=== PATIENT | female | born 1945 | race Caucasian/White ===

== ENCOUNTER → 2017-07-18 | Outpatient (CLI) | payer MEDICARE ==
[2017-07-18 09:56] LABS: BASOPHILS % (AUTO) 0.9 % (0.0-5.0); EOSINOPHILS % (AUTO) 3.2 % (0.0-8.0); HEMATOCRIT 42.4 % (36-48); LYMPHOCYTES % (AUTO) 13.4 % (21.0-51.0); MEAN CORPUSCULAR HEMOGLOBIN 35.1 pg (27.0-33.0); MEAN CORPUSCULAR HGB CONC 34.6 g/dL (32.0-36.0); MEAN CORPUSCULAR VOLUME 101.5 fL (79-99); MONOCYTES % (AUTO) 9.3 % (3.0-13.0); NEUTROPHILS % (AUTO) 73.2 % (40.0-77.0); PLATELET COUNT (AUTO) 204 K/uL (130-400); RED BLOOD CELL COUNT(AUTO) 4.18 MIL/uL (4.00-5.50); RED CELL DISTRIBUTION WIDTH 12.9 % (11.0-15.5); WHITE BLOOD COUNT (AUTO) 4.9 K/uL (4.8-10.8)
[2017-07-18 10:09] LABS: ALBUMIN 3.8 g/dL (3.5-5.0); BILIRUBIN,TOTAL 0.5 mg/dL (0.2-1.0); CREATININE 0.6 mg/dL (0.5-1.5); CRP QUANTITATIVE 4.2 mg/L (0.00-9.0); POTASSIUM 3.7 mmol/L (3.5-5.1)
[2017-07-18 10:50] LABS: ERYTHROCYTE SEDIMENTATION RATE 45 MM/HR (0-15)
== END | disposition home or self-care (01) ==
LOC: LAB 09:02
PROVIDERS: ATTEND Internal Medicine
DX: M06.9 Rheumatoid arthritis, unspecified (principal)
CPT/HCPCS: 36415; 80053; 85025; 85651; 86140; 86255; 86431

== ENCOUNTER 2017-07-19 13:31 | Emergency (ER) | payer MEDICARE ==
[2017-07-19] MEDS ORDERED: ACETAMINOPHEN 325 MG TAB ONE (14:02)
[2017-07-19] MEDS ORDERED: ONDANSETRON ODT 4 MG TAB ONE (14:35)
[2017-07-19] MEDS ORDERED: MORPHINE SULFATE 4 MG/1ML SYG ONE (14:36)
== END 2017-07-19 17:20 | disposition home or self-care (01) ==
LOC: EDH 13:31
DX: S80.02XA Contusion of left knee, initial encounter (principal); S00.83XA Contusion of other part of head, initial encounter; M19.90 Unspecified osteoarthritis, unspecified site; Z88.1 Allergy status to other antibiotic agents; Z96.649 Presence of unspecified artificial hip joint; W18.39XA Other fall on same level, initial encounter; Y93.01 Activity, walking, marching and hiking; Y92.89 Other specified places as the place of occurrence of the external cause; Y99.8 Other external cause status
CPT/HCPCS: 70450; 73562; 96372; 99284; J2270

== ENCOUNTER → 2017-07-20 | Outpatient (CLI) | payer MEDICARE | END | disposition home or self-care (01) | LOC: OIH 09:32 | PROVIDERS: ATTEND Nurse Practitioner Adult Health | DX: M19.032 Primary osteoarthritis, left wrist (principal); M79.632 Pain in left forearm; W19.XXXA Unspecified fall, initial encounter; Y93.89 Activity, other specified; Y92.89 Other specified places as the place of occurrence of the external cause; Y99.8 Other external cause status | CPT/HCPCS: 73090; 73100 ==

== ENCOUNTER → 2017-12-23 | Outpatient (CLI) | payer MEDICARE | END | disposition home or self-care (01) | LOC: RAH 15:43 | PROVIDERS: ATTEND Nurse Practitioner Adult Health | DX: R07.81 Pleurodynia (principal) | CPT/HCPCS: 71100 ==

== ENCOUNTER → 2018-03-23 | Outpatient (CLI) | payer MEDICARE ==
[2018-03-23 10:42] LABS: BASOPHILS % (AUTO) 1.2 % (0.0-5.0); EOSINOPHILS % (AUTO) 1.2 % (0.0-8.0); HEMATOCRIT 42.2 % (36-48); LYMPHOCYTES % (AUTO) 5.7 % (21.0-51.0); MEAN CORPUSCULAR HEMOGLOBIN 35.4 pg (27.0-33.0); MEAN CORPUSCULAR HGB CONC 35.1 g/dL (32.0-36.0); MEAN CORPUSCULAR VOLUME 100.9 fL (79-99); MONOCYTES % (AUTO) 6.2 % (3.0-13.0); NEUTROPHILS % (AUTO) 85.7 % (40.0-77.0); PLATELET COUNT (AUTO) 229 K/uL (130-400); RED BLOOD CELL COUNT(AUTO) 4.18 MIL/uL (4.00-5.50); RED CELL DISTRIBUTION WIDTH 12.9 % (11.0-15.5); WHITE BLOOD COUNT (AUTO) 10.8 K/uL (4.8-10.8)
[2018-03-23 10:54] LABS: ALBUMIN 3.6 g/dL (3.5-5.0); BILIRUBIN,TOTAL 0.5 mg/dL (0.2-1.0); CREATININE 0.8 mg/dL (0.5-1.5); CRP QUANTITATIVE 4.1 mg/L (0.00-9.0); POTASSIUM 3.1 mmol/L (3.5-5.1); TOTAL PROTEIN, SERUM 7.6 g/dL (6.0-8.3)
[2018-03-23 11:53] LABS: ERYTHROCYTE SEDIMENTATION RATE 41 MM/HR (0-30)
== END | disposition home or self-care (01) ==
LOC: LAB 10:08
PROVIDERS: ATTEND Internal Medicine
DX: M25.50 Pain in unspecified joint (principal)
CPT/HCPCS: 36415; 80053; 85025; 85651; 86140

== ENCOUNTER → 2018-03-30 | Outpatient (CLI) | payer MEDICARE | END | disposition home or self-care (01) | LOC: RAH 13:06 | PROVIDERS: ATTEND Nurse Practitioner Adult Health | DX: M79.605 Pain in left leg (principal) | CPT/HCPCS: 76882 ==

== ENCOUNTER → 2018-05-05 | Outpatient (CLI) | payer MEDICARE | END | disposition home or self-care (01) | LOC: OIH 10:12 | PROVIDERS: ATTEND Nurse Practitioner Adult Health | DX: R06.02 Shortness of breath (principal); R05 Cough; R07.81 Pleurodynia; M47.815 Spondylosis without myelopathy or radiculopathy, thoracolumbar region; Z91.81 History of falling | CPT/HCPCS: 71046; 71100 ==

== ENCOUNTER → 2018-05-29 | Outpatient (CLI) | payer MEDICARE | END | disposition home or self-care (01) | LOC: OIH 10:25 | PROVIDERS: ATTEND Nurse Practitioner Adult Health | DX: M81.0 Age-related osteoporosis without current pathological fracture (principal); G95.29 Other cord compression; M85.88 Other specified disorders of bone density and structure, other site | CPT/HCPCS: 72070 ==

== ENCOUNTER → 2021-06-15 | Outpatient (CLI) | payer MEDICARE | END | disposition home or self-care (01) | LOC: SHCH 14:08 | PROVIDERS: ATTEND Internal Medicine Cardiovascular Disease | DX: I08.3 Combined rheumatic disorders of mitral, aortic and tricuspid valves (principal) | CPT/HCPCS: 93306 ==

== ENCOUNTER → 2021-09-02 | Outpatient (CLI) | payer MEDICARE | END | disposition home or self-care (01) | LOC: RAH 10:55 | PROVIDERS: ATTEND Nurse Practitioner Adult Health | DX: J90 Pleural effusion, not elsewhere classified (principal); R05.9 Cough, unspecified | CPT/HCPCS: 71046 ==

== ENCOUNTER → 2021-09-15 | Outpatient (CLI) | payer MEDICARE | END | disposition home or self-care (01) | LOC: RAH 08:55 | PROVIDERS: ATTEND Nurse Practitioner Adult Health | DX: J90 Pleural effusion, not elsewhere classified (principal); R05.9 Cough, unspecified; J84.89 Other specified interstitial pulmonary diseases | CPT/HCPCS: 71046 ==

== ENCOUNTER → 2021-11-19 | Outpatient (CLI) | payer MEDICARE | END | disposition home or self-care (01) | LOC: RAH 13:52 | PROVIDERS: ATTEND Physician Assistant | DX: M54.6 Pain in thoracic spine (principal); M54.2 Cervicalgia | CPT/HCPCS: 72052; 72074 ==

== ENCOUNTER → 2021-11-27 | Outpatient (CLI) | payer MEDICARE | END | disposition home or self-care (01) | LOC: RAH 12:33 | PROVIDERS: ATTEND Physical Medicine & Rehabilitation | DX: R26.89 Other abnormalities of gait and mobility (principal) | CPT/HCPCS: 70551 ==

== ENCOUNTER → 2022-02-09 | Outpatient (CLI) | payer MEDICARE ==
[~2022-02-09] MED LIST: IOHEXOL-350 50ML VIAL IV ONE
== END | disposition home or self-care (01) ==
LOC: RAH 08:29
PROVIDERS: ATTEND Nurse Practitioner Adult Health
DX: R91.8 Other nonspecific abnormal finding of lung field (principal); J44.9 Chronic obstructive pulmonary disease, unspecified; K44.9 Diaphragmatic hernia without obstruction or gangrene
CPT/HCPCS: 71260; Q9967

== ENCOUNTER → 2022-04-15 | Outpatient (CLI) | payer MEDICARE | END | disposition home or self-care (01) | LOC: RAH 10:24 | PROVIDERS: ATTEND Physical Medicine & Rehabilitation | DX: M19.011 Primary osteoarthritis, right shoulder (principal); M89.8X2 Other specified disorders of bone, upper arm; M25.511 Pain in right shoulder; Z91.81 History of falling; Z88.1 Allergy status to other antibiotic agents; Z88.8 Allergy status to other drugs, medicaments and biological substances | CPT/HCPCS: 73030; 73060 ==

== ENCOUNTER → 2022-05-18 | Outpatient (CLI) | payer MEDICARE ==
[2022-05-18 13:15] LABS: ALBUMIN 3.8 g/dL (3.5-5.0); CREATININE 0.7 mg/dL (0.5-1.5); POTASSIUM 4.6 mmol/L (3.5-5.1); TOTAL PROTEIN, SERUM 7.6 g/dL (6.0-8.3)
== END | disposition home or self-care (01) ==
LOC: LAB 08:28
PROVIDERS: ATTEND Internal Medicine Cardiovascular Disease
DX: I10 Essential (primary) hypertension (principal)
CPT/HCPCS: 36415; 80053

== ENCOUNTER → 2022-05-21 | Outpatient (CLI) | payer MEDICARE ==
[~2022-05-21] MED LIST changes: +IOHEXOL 350 MG/ML 100ML INFUS..BTL IV ONE; -IOHEXOL-350 50ML VIAL IV ONE
== END | disposition home or self-care (01) ==
LOC: RAH 13:07
PROVIDERS: ATTEND Internal Medicine Cardiovascular Disease
DX: I48.0 Paroxysmal atrial fibrillation (principal)
CPT/HCPCS: 71270; Q9967

== ENCOUNTER 2022-09-27 11:33 | Emergency (ER) | payer MEDICARE ==
[~2022-09-27] VITALS: Ht 162.6 cm; Wt 83.5 kg
[2022-09-27 11:38] VITALS: BP 133/44
== END 2022-09-27 12:55 | disposition home or self-care (01) ==
LOC: EDH 11:33
DX: S09.90XA Unspecified injury of head, initial encounter (principal); I48.91 Unspecified atrial fibrillation; Z90.710 Acquired absence of both cervix and uterus; Z90.49 Acquired absence of other specified parts of digestive tract; Z88.1 Allergy status to other antibiotic agents; Z85.3 Personal history of malignant neoplasm of breast; Z79.01 Long term (current) use of anticoagulants; W18.39XA Other fall on same level, initial encounter; Y93.01 Activity, walking, marching and hiking; Y92.89 Other specified places as the place of occurrence of the external cause; Y99.8 Other external cause status
CPT/HCPCS: 70450; 72125

== ENCOUNTER 2022-10-14 08:19 | Inpatient (IN) | payer MEDICARE ==
[~2022-10-14] VITALS: Ht 162.6 cm; Wt 85.7 kg
[2022-10-14 08:42] LABS: BASOPHILS % (AUTO) 0.8 % (0.0-5.0); HEMATOCRIT 37.8 % (36-48); LYMPHOCYTES % (AUTO) 12.3 % (21.0-51.0); MEAN CORPUSCULAR HEMOGLOBIN 35.3 pg (27.0-33.0); MEAN CORPUSCULAR HGB CONC 33.9 g/dL (32.0-36.0); MEAN CORPUSCULAR VOLUME 104.1 fL (79-99); MONOCYTES % (AUTO) 9.4 % (3.0-13.0); NEUTROPHILS % (AUTO) 74.1 % (40.0-77.0); PLATELET COUNT (AUTO) 177 K/uL (130-400); RED BLOOD CELL COUNT(AUTO) 3.63 MIL/uL (4.00-5.50); RED CELL DISTRIBUTION WIDTH 12.9 % (11.0-15.5); WHITE BLOOD COUNT (AUTO) 5.3 K/uL (4.8-10.8)
[2022-10-14] MEDS ORDERED: METOCLOPRAMIDE 10 MG/2 ML VIAL IVP ONE (09:30)
[2022-10-14] MEDS ORDERED: MECLIZINE HCL 25 MG TABLET PO ONE (09:30)
[2022-10-14 09:53] LABS: CREATININE 0.7 mg/dL (0.5-1.5); POTASSIUM 4.1 mmol/L (3.5-5.1)
[2022-10-14 10:02] LABS: MAGNESIUM 1.9 mg/dL (1.80-2.40)
[2022-10-14 10:03] LABS: ALBUMIN 3.6 g/dL (3.5-5.0)
[2022-10-14 10:05] LABS: THYROID STIMULATING HORMONE 1.61 uIU/mL (0.36-3.74)
[2022-10-14 10:30] LABS: APPEARANCE,URINE CLEAR (CLEAR); BILIRUBIN,URINE NEGATIVE (NEGATIVE); COLOR,URINE LIGHT-YELLOW (YELLOW); GLUCOSE, URINE (UA) NEGATIVE (NEGATIVE); KETONES,URINE NEGATIVE (NEGATIVE); LEUKOCYTE ESTERASE ,URINE 75 Leu/uL (NEGATIVE); NITRATE,URINE NEGATIVE (NEGATIVE); OCCULT BLOOD,URINE NEGATIVE (NEGATIVE); PROTEIN,URINE NEGATIVE (NEGATIVE); UROBILINOGEN,URINE 0.2 mg/dL (0.2-1.0)
[2022-10-14 10:36] LABS: BACTERIA,URINE RARE /HPF (None Seen); MUCUS,URINE RARE LPF (None Seen); SQUAMOUS EPITHELIAL CELL,UR RARE /HPF (0-2)
[2022-10-14] MEDS ORDERED: 0.9%NACL 1000ML 1,000 ML IV SCH (13:30)
[2022-10-14 13:52] LABS: INR 0.98 (0.85-1.15); PROTHROMBIN TIME 11.4 SEC (9.6-11.6)
[2022-10-14 13:53] LABS: PARTIAL THROMBOPLASTIN TIME 31.6 SEC (26.3-35.5)
[2022-10-14] MEDS ORDERED: MONT-39 PO (14:10)
[2022-10-14] MEDS ORDERED: DRON400T7 PO (14:10)
[2022-10-14] MEDS ORDERED: SPIR25TA6 PO (14:10)
[2022-10-14] MEDS ORDERED: ROSU20TA73 PO (14:10)
[2022-10-14] MEDS ORDERED: APIX5TAB PO (14:10)
[2022-10-14] MEDS ORDERED: CHOL5POW MC (14:10)
[2022-10-14] MEDS ORDERED: METO-391 PO (14:10)
[2022-10-14] MEDS ORDERED: FURO40TA5 PO (14:10)
[2022-10-14] MEDS ORDERED: ALEN70SO4 PO (14:13)
[2022-10-14] MEDS ORDERED: FLUO40CA49 PO (14:13)
[2022-10-14] MEDS ORDERED: ACETAMINOPHEN 500 MG TABLET PO PRN (14:30)
[2022-10-14 18:45] VITALS: BP 118/71
[2022-10-14] MEDS ORDERED: ATORVASTATIN 40 MG TABLET PO SCH (21:00)
[2022-10-14] MEDS ORDERED: NON-FORMULARY MEDICATION 1 EACH (Rosuvastatin Calcium 20 MG) PO SCH (21:00)
[2022-10-14] MEDS ORDERED: CHOLESTYRAMINE 4 GM MC SCH (21:00)
[2022-10-14] MEDS ORDERED: CHOLESTYRAMINE PACKET 4 GM PACKET PO SCH (21:00)
[2022-10-14] MEDS ORDERED: APIXABAN 5 MG TABLET PO SCH (21:00)
[2022-10-14] MEDS ORDERED: METOPROLOL SUCCINATE 50 MG TAB.SR.24H PO SCH (21:00)
[2022-10-14] MEDS ORDERED: DRONEDARONE HYDROCHLORIDE 400 MG TABLET PO SCH (21:00)
[2022-10-15] MEDS ORDERED: FUROSEMIDE 40 MG TABLET PO SCH (08:00)
[2022-10-15] MEDS ORDERED: FLUOXETINE HCL 20 MG CAPSULE PO SCH (09:00)
[2022-10-15] MEDS ORDERED: FLUOXETINE HCL 40 MG PO SCH (09:00)
[2022-10-15] MEDS ORDERED: SPIRONOLACTONE 25 MG TAB PO SCH (09:00)
[2022-10-15] MEDS ORDERED: MONTELUKAST SODIUM 10 MG TAB PO SCH (09:00)
== END 2022-10-14 19:05 | disposition left against medical advice (07) | DRG 74 ==
LOC: EDH 08:19 → EDHIP 13:14
PROVIDERS: ADMIT Internal Medicine; ATTEND Internal Medicine
DX: G90.8 Other disorders of autonomic nervous system (principal); N39.0 Urinary tract infection, site not specified; B96.20 Unspecified Escherichia coli [E. coli] as the cause of diseases classified elsewhere; E78.5 Hyperlipidemia, unspecified; I10 Essential (primary) hypertension; I48.0 Paroxysmal atrial fibrillation; Z79.01 Long term (current) use of anticoagulants; Z85.3 Personal history of malignant neoplasm of breast; Z90.12 Acquired absence of left breast and nipple; Z90.710 Acquired absence of both cervix and uterus; Z98.82 Breast implant status
CPT/HCPCS: 36415; 70551; 71045; 80053; 81001; 83036; 83735; 84145; 84443; 84484; 85025; 85610; 85730; 87077; 87088; 87186; 92610; 93005; G0378; J2765

== ENCOUNTER 2022-12-14 06:51 | Day surgery (SDC) | payer MEDICARE ==
[2022-12-10 11:26] LABS: BASOPHILS # (AUTO) 0.05 K/uL (0.00-0.20); BASOPHILS % (AUTO) 0.9 % (0.0-5.0); EOSINOPHILS # (AUTO) 0.13 K/uL (0.00-0.70); EOSINOPHILS % (AUTO) 2.3 % (0.0-8.0); HEMATOCRIT 40.7 % (36-48); IMMATURE GRANULOCYTE ABSOLUTE 0.02 K/uL (0-1); LYMPHOCYTES # (AUTO) 0.7 K/uL (1.0-4.8); LYMPHOCYTES % (AUTO) 13.1 % (21.0-51.0); MEAN CORPUSCULAR HEMOGLOBIN 35.4 pg (27.0-33.0); MEAN CORPUSCULAR HGB CONC 33.2 g/dL (32.0-36.0); MEAN CORPUSCULAR VOLUME 106.8 fL (79-99); MONOCYTES # (AUTO) 0.8 K/uL (0.1-1.0); MONOCYTES % (AUTO) 13.5 % (3.0-13.0); NEUTROPHILS # (AUTO) 3.9 K/uL (1.8-7.7); NEUTROPHILS % (AUTO) 69.8 % (40.0-77.0); PLATELET COUNT (AUTO) 182 K/uL (130-400); RED BLOOD CELL COUNT(AUTO) 3.81 MIL/uL (4.00-5.50); RED CELL DISTRIBUTION WIDTH 12.1 % (11.0-15.5); WHITE BLOOD COUNT (AUTO) 5.6 K/uL (4.8-10.8)
[2022-12-10 11:38] LABS: CREATININE 0.8 mg/dL (0.5-1.5); POTASSIUM 4.3 mmol/L (3.5-5.1)
[2022-12-10 11:40] LABS: INR 0.99 (0.85-1.15); PROTHROMBIN TIME 11.5 SEC (9.6-11.6)
[2022-12-10 11:41] LABS: PARTIAL THROMBOPLASTIN TIME 32.3 SEC (26.3-35.5)
[2022-12-10 12:05] VITALS: BP 116/54; PULSE 59; RESP 18
[~2022-12-14] VITALS: Ht 162.6 cm; Wt 85.5 kg
[~2022-12-14 06:51] MED LIST changes: +ALEN70SO4 PO; +APIX5TAB PO; +CHOL5POW MC; +DRON400T7 PO; +FLUO40CA49 PO; +FURO40TA5 PO; -IOHEXOL 350 MG/ML 100ML INFUS..BTL IV ONE; +METO-409 PO; +MONT-39 PO; +NITROFURANTOIN PO; +ROSU20TA73 PO; +SPIR25TA6 PO
[2022-12-14 07:08] VITALS: BP 124/60; PULSE 56; RESP 12
[2022-12-14] MEDS ORDERED: 0.9%NACL 1000ML 1,000 ML IV ONE (07:28)
[2022-12-14] MEDS ORDERED: DEXAMETHASONE SOD PHOSPHATE 10MG/ML 1ML VIAL ONE (08:07)
[2022-12-14] MEDS ORDERED: LIDOCAINE PF 100MG/5ML (2%) SYRINGE 5ML ONE (08:07)
[2022-12-14] MEDS ORDERED: SUCCINYLCHOLINE 200MG/10ML SYR ONE (08:07)
[2022-12-14] MEDS ORDERED: GLYCOPYRROLATE 1 MG/5 ML SYRINGE ONE (08:08)
[2022-12-14] MEDS ORDERED: ONDANSETRON 4MG INJ ONE ×2 (08:08→08:43)
[2022-12-14] MEDS ORDERED: MIDAZOLAM HCL 1 MG/ML 2ML VIAL ONE (08:08)
[2022-12-14] MEDS ORDERED: NEOSTIGMINE 5MG/5ML SYR IV ONE (08:08)
[2022-12-14] MEDS ORDERED: PROPOFOL 10 MG/ML 20ML VIAL IV ONE ×2 (08:08→08:14)
[2022-12-14] MEDS ORDERED: FENTANYL CITRATE PF 50 MCG/1 ML 2ML VIAL ONE (08:09)
[2022-12-14] MEDS ORDERED: ROCURONIUM 10MG/1ML SYR 10 MG/ML ML ONE (08:09)
[2022-12-14] MEDS ORDERED: SUGAMMADEX SODIUM 200 MG/2 ML VIAL IV ONE (08:40)
[2022-12-14] MEDS ORDERED: HEPARIN 10,000 UNIT/10ML (1,000 UNIT/ML) VIAL ONE (10:40)
[2022-12-14] MEDS ORDERED: LIDOCAINE HCL 1% MDV 50ML VIAL ONE (10:40)
[2022-12-20] MEDS ORDERED: FURO40TA5 PO (08:57)
== END 2022-12-14 12:00 | disposition home or self-care (01) ==
LOC: DAH 06:51
PROVIDERS: ATTEND Internal Medicine Cardiovascular Disease
DX: I48.0 Paroxysmal atrial fibrillation (principal); I95.1 Orthostatic hypotension; I44.0 Atrioventricular block, first degree; I49.1 Atrial premature depolarization; M19.90 Unspecified osteoarthritis, unspecified site; Z79.899 Other long term (current) drug therapy; Z98.890 Other specified postprocedural states; Z90.49 Acquired absence of other specified parts of digestive tract; Z90.12 Acquired absence of left breast and nipple; Z96.643 Presence of artificial hip joint, bilateral
CPT/HCPCS: 93005; 80048; 85025; 85610; 85730; 36415; J0330; J7030; J1644; J2250; J2405; A4215; A4222; A4221; A4663; A4216; A4606; A4223 ×3; J1100; J2001; J2704; J2710; J3010; J3490

== ENCOUNTER 2022-12-21 05:53 | Observation (INO) | payer MEDICARE ==
[2022-12-17 14:12] LABS: BASOPHILS # (AUTO) 0.04 K/uL (0.00-0.20); BASOPHILS % (AUTO) 0.7 % (0.0-5.0); EOSINOPHILS # (AUTO) 0.14 K/uL (0.00-0.70); EOSINOPHILS % (AUTO) 2.5 % (0.0-8.0); HEMATOCRIT 38.5 % (36-48); IMMATURE GRANULOCYTE ABSOLUTE 0.01 K/uL (0-1); LYMPHOCYTES # (AUTO) 0.7 K/uL (1.0-4.8); LYMPHOCYTES % (AUTO) 12.7 % (21.0-51.0); MEAN CORPUSCULAR HEMOGLOBIN 35.4 pg (27.0-33.0); MEAN CORPUSCULAR HGB CONC 33.8 g/dL (32.0-36.0); MEAN CORPUSCULAR VOLUME 104.9 fL (79-99); MONOCYTES # (AUTO) 0.6 K/uL (0.1-1.0); MONOCYTES % (AUTO) 11.4 % (3.0-13.0); NEUTROPHILS % (AUTO) 72.5 % (40.0-77.0); PLATELET COUNT (AUTO) 182 K/uL (130-400); RED BLOOD CELL COUNT(AUTO) 3.67 MIL/uL (4.00-5.50); RED CELL DISTRIBUTION WIDTH 11.9 % (11.0-15.5); WHITE BLOOD COUNT (AUTO) 5.5 K/uL (4.8-10.8)
[2022-12-17 14:24] VITALS: BP 147/65; PULSE 58; RESP 18
[2022-12-17 14:26] LABS: CREATININE 0.8 mg/dL (0.5-1.5); INR 1.02 (0.85-1.15); PROTHROMBIN TIME 11.8 SEC (9.6-11.6)
[2022-12-17 14:27] LABS: PARTIAL THROMBOPLASTIN TIME 35.6 SEC (26.3-35.5)
[2022-12-21] VITALS (25 sets, daily range): BP systolic 111–152; BP diastolic 35–71; PULSE 63–77; RESP 15–20
[~2022-12-21] VITALS: Ht 162.6 cm; Wt 83.0 kg
[~2022-12-21 05:53] MED LIST changes: -NITROFURANTOIN PO
[2022-12-21] MEDS ORDERED: 0.9%NACL 1000ML 1,000 ML IV ONE (06:58)
[2022-12-21] MEDS ORDERED: HEPARIN 10,000 UNIT/10ML (1,000 UNIT/ML) VIAL ONE ×3 (07:21→08:34)
[2022-12-21] MEDS ORDERED: LIDOCAINE HCL 1% MDV 50ML VIAL ONE (07:21)
[2022-12-21] MEDS ORDERED: SUCCINYLCHOLINE 200MG/10ML SYR ONE (07:30)
[2022-12-21] MEDS ORDERED: EPHEDRINE SULFATE 50 MG/ML AMPULE ONE (07:30)
[2022-12-21] MEDS ORDERED: PROPOFOL 10 MG/ML 20ML VIAL IV ONE (07:30)
[2022-12-21] MEDS ORDERED: MIDAZOLAM HCL 1 MG/ML 2ML VIAL ONE (07:30)
[2022-12-21] MEDS ORDERED: ROCURONIUM 10MG/1ML SYR 10 MG/ML ML ONE (07:30)
[2022-12-21] MEDS ORDERED: FENTANYL CITRATE PF 50 MCG/1 ML 2ML VIAL ONE (07:30)
[2022-12-21] MEDS ORDERED: PHENYLEPHRINE HCL 10 MG/ML 1ML VIAL IV ONE (07:30)
[2022-12-21 08:19] LABS: ABG BASE EXCESS -3.2 mmol/L (-2.0-3.0); ABG HCO3 19.9 mmol/L (21.0-28.0); ABG OXYGEN SATURATION 99.6 % (95.0-99.0); ABG PCO2 31 mmHg (32-45); ABG PH 7.427 (7.35-7.450); VENT MODE, BG ANT VENT (ROOM AIR)
[2022-12-21] MEDS ORDERED: PROTAMINE SULFATE 10 MG/ML 25ML VIAL IV ONE (11:50)
[2022-12-21] MEDS ORDERED: AMIODARONE 150MG VIAL ONE (12:11)
[2022-12-21] MEDS ORDERED: SUGAMMADEX SODIUM 200 MG/2 ML VIAL IV ONE (12:22)
[2022-12-21] MEDS ORDERED: PANTOPRAZOLE 40 MG TAB DR PO SCH (13:30)
[2022-12-21] MEDS: SUCRALFATE 1 GM TABLET PO SCH ×2 (14:00→20:00)
[2022-12-21] MEDS: BENZOCAINE/MENTH/CETYLPYRD CL 1 EACH LOZENGE MM PRN ×2 (17:00→20:20)
[2022-12-21] MEDS ORDERED: MAG/ALUM/SIMETH 30 ML UDCUP PO PRN (17:30)
[2022-12-21] MEDS ORDERED: LACTULOSE 20 GM/30 ML UDCUP PO PRN (17:30)
[2022-12-21] MEDS ORDERED: ONDANSETRON 4MG INJ IV PRN (17:30)
[2022-12-21] MEDS ORDERED: DiphenhydrAMINE HCL 50 MG/ML VIAL IV PRN (17:30)
[2022-12-21] MEDS ORDERED: DIPHENHYDRAMINE HCL 25 MG CAPSULE PO PRN (17:30)
[2022-12-21] MEDS ORDERED: GUAIFENESIN-DM 200/20 MG 10 ML PO PRN (17:30)
[2022-12-21] MEDS ORDERED: NITROGLYCERIN 0.4 MG SL TAB SL PRN (17:30)
[2022-12-21] MEDS: DRONEDARONE HYDROCHLORIDE 400 MG TABLET PO SCH (20:21)
[2022-12-21] MEDS: ACETAMINOPHEN 325 MG TAB PO PRN (20:21)
[2022-12-21] MEDS: METOPROLOL SUCCINATE 50 MG TAB.SR.24H PO SCH (20:21)
[2022-12-21] MEDS: FAMOTIDINE 20MG TAB PO SCH (20:21)
[2022-12-21] MEDS: APIXABAN 5 MG TABLET PO SCH (20:22)
[2022-12-21] MEDS: CHOLESTYRAMINE PACKET 4 GM PACKET PO SCH (20:26)
[2022-12-21] MEDS ORDERED: FAMOTIDINE 20MG VIAL IV PRN (21:00)
[2022-12-21] MEDS ORDERED: DRONEDARONE HYDROCHLORIDE 400 MG TABLET PO SCH (21:00)
[2022-12-22] MEDS: SUCRALFATE 1 GM TABLET PO SCH ×2 (02:00→08:41)
[2022-12-22 03:25] VITALS: BP 113/57; PULSE 75; RESP 18
[2022-12-22 04:08] LABS: BASOPHILS # (AUTO) 0.01 K/uL (0.00-0.20); BASOPHILS % (AUTO) 0.1 % (0.0-5.0); IMMATURE GRANULOCYTE ABSOLUTE 0.03 K/uL (0-1); LYMPHOCYTES # (AUTO) 0.5 K/uL (1.0-4.8); LYMPHOCYTES % (AUTO) 6.9 % (21.0-51.0); MEAN CORPUSCULAR HEMOGLOBIN 35.8 pg (27.0-33.0); MEAN CORPUSCULAR HGB CONC 34.1 g/dL (32.0-36.0); MEAN CORPUSCULAR VOLUME 105.1 fL (79-99); MONOCYTES # (AUTO) 0.3 K/uL (0.1-1.0); MONOCYTES % (AUTO) 4.2 % (3.0-13.0); NEUTROPHILS # (AUTO) 6.7 K/uL (1.8-7.7); NEUTROPHILS % (AUTO) 88.4 % (40.0-77.0); PLATELET COUNT (AUTO) 159 K/uL (130-400); RED BLOOD CELL COUNT(AUTO) 3.52 MIL/uL (4.00-5.50); WHITE BLOOD COUNT (AUTO) 7.6 K/uL (4.8-10.8)
[2022-12-22 04:39] LABS: CREATININE 0.7 mg/dL (0.5-1.5); MAGNESIUM 1.7 mg/dL (1.80-2.40); POTASSIUM 4.1 mmol/L (3.5-5.1)
[2022-12-22] MEDS: ACETAMINOPHEN 325 MG TAB PO PRN (06:22)
[2022-12-22 08:00] VITALS: BP 132/59; PULSE 71; RESP 18
[2022-12-22] MEDS: APIXABAN 5 MG TABLET PO SCH (08:41)
[2022-12-22] MEDS: DRONEDARONE HYDROCHLORIDE 400 MG TABLET PO SCH (08:42)
[2022-12-22] MEDS: METOPROLOL SUCCINATE 50 MG TAB.SR.24H PO SCH (08:43)
[2022-12-22] MEDS: FAMOTIDINE 20MG TAB PO SCH (08:43)
[2022-12-22] MEDS: CHOLESTYRAMINE PACKET 4 GM PACKET PO SCH (08:44)
[2022-12-22] MEDS ORDERED: MUPIROCIN OINTMENT 22 GM TUBE TP SCH (09:00)
[2022-12-22] MEDS ORDERED: FLUOXETINE HCL 20 MG CAPSULE PO SCH (09:00)
[2022-12-22] MEDS ORDERED: PANTOPRAZOLE 40 MG TAB DR PO SCH (09:00)
[2022-12-22] MEDS ORDERED: MONTELUKAST SODIUM 10 MG TAB PO SCH (09:00)
[2022-12-22] MEDS ORDERED: SPIRONOLACTONE 25 MG TAB PO SCH (09:00)
[2022-12-22] MEDS ORDERED: FUROSEMIDE 40 MG TABLET PO SCH (09:00)
[2022-12-22] MEDS ORDERED: MAGNESIUM 2GM PREMIX 50ML 50 ML IV PRN (10:00)
[2022-12-22 11:00] VITALS: BP 138/67; PULSE 73; RESP 17
[2022-12-22] MEDS ORDERED: PANT40TA55 PO (11:22)
[2022-12-22] MEDS ORDERED: SUCR1ORA15 PO (11:22)
== END 2022-12-22 12:31 | disposition home or self-care (01) ==
LOC: DAH 05:53 → DAHIP 05:54 → DAH 05:54 → 2DH 14:59
PROVIDERS: ADMIT Internal Medicine; ATTEND Internal Medicine
DX: I48.0 Paroxysmal atrial fibrillation (principal); I10 Essential (primary) hypertension; I47.1 Supraventricular tachycardia; I48.19 Other persistent atrial fibrillation; E78.5 Hyperlipidemia, unspecified; G70.00 Myasthenia gravis without (acute) exacerbation; Z79.01 Long term (current) use of anticoagulants; Z90.710 Acquired absence of both cervix and uterus; Z90.49 Acquired absence of other specified parts of digestive tract; Z79.899 Other long term (current) drug therapy; Z98.890 Other specified postprocedural states; Z98.49 Cataract extraction status, unspecified eye; Z96.643 Presence of artificial hip joint, bilateral; Z96.659 Presence of unspecified artificial knee joint
CPT/HCPCS: 80048 ×2; 85025 ×2; 85610; 85730; 36415 ×3; 93005 ×2; 93655; 93656; 93657 ×2; 82803; 85347 ×8; 96365; 83735; 84100; A4344; C1894 ×3; C1732 ×2; C1769; C1893; A4215 ×2; C1731; A4649 ×2; C1766; G0378 ×24; J3010; J0330; J7030; J2720; J3490 ×2; J1644 ×3; J2250; J2704; J2371; J0282; A4223 ×3; A4222; A4221; A4663; A4216; A4606; J3475

== ENCOUNTER → 2023-03-23 | Outpatient (CLI) | payer MEDICARE ==
[~2023-03-23] MED LIST changes: +PANT40TA55 PO; +SUCR1ORA15 PO
[2023-03-23 22:04] VITALS: PULSE 74; RESP 12
[2023-03-23 22:35] VITALS: PULSE 82; RESP 14
[2023-03-23 23:08] VITALS: PULSE 73; RESP 10
[2023-03-23 23:30] VITALS: PULSE 73; RESP 10
[2023-03-24] VITALS (11 sets, daily range): PULSE 70–80; RESP 10–18
== END | disposition home or self-care (01) ==
LOC: SLP 20:28
PROVIDERS: ATTEND Nurse Practitioner Adult Health
DX: G47.33 Obstructive sleep apnea (adult) (pediatric) (principal); J96.21 Acute and chronic respiratory failure with hypoxia
CPT/HCPCS: 95810

== ENCOUNTER → 2023-08-03 | Outpatient (CLI) | payer MEDICARE | END | disposition home or self-care (01) | LOC: RAH 11:23 | PROVIDERS: ATTEND Nurse Practitioner Adult Health | DX: M19.011 Primary osteoarthritis, right shoulder (principal); M79.601 Pain in right arm; M25.511 Pain in right shoulder | CPT/HCPCS: 73030; 73060 ==

== ENCOUNTER → 2023-08-08 | Outpatient (CLI) | payer MEDICARE ==
[2023-08-08 09:03] LABS: BASOPHILS # (AUTO) 0.04 K/uL (0.00-0.20); BASOPHILS % (AUTO) 0.8 % (0.0-5.0); EOSINOPHILS # (AUTO) 0.13 K/uL (0.00-0.70); EOSINOPHILS % (AUTO) 2.5 % (0.0-8.0); HEMATOCRIT 42.8 % (36-48); IMMATURE GRANULOCYTE ABSOLUTE 0.02 K/uL (0-1); LYMPHOCYTES # (AUTO) 0.5 K/uL (1.0-4.8); LYMPHOCYTES % (AUTO) 10.6 % (21.0-51.0); MEAN CORPUSCULAR HEMOGLOBIN 35.1 pg (27.0-33.0); MEAN CORPUSCULAR HGB CONC 33.2 g/dL (32.0-36.0); MEAN CORPUSCULAR VOLUME 105.7 fL (79-99); MONOCYTES # (AUTO) 0.5 K/uL (0.1-1.0); NEUTROPHILS # (AUTO) 3.9 K/uL (1.8-7.7); NEUTROPHILS % (AUTO) 75.7 % (40.0-77.0); PLATELET COUNT (AUTO) 189 K/uL (130-400); RED BLOOD CELL COUNT(AUTO) 4.05 MIL/uL (4.00-5.50); RED CELL DISTRIBUTION WIDTH 12.1 % (11.0-15.5); WHITE BLOOD COUNT (AUTO) 5.1 K/uL (4.8-10.8)
[2023-08-08 09:30] LABS: THYROID STIMULATING HORMONE 1.54 uIU/mL (0.36-3.74)
== END | disposition home or self-care (01) ==
LOC: LAB 08:04
PROVIDERS: ATTEND Internal Medicine Critical Care Medicine
DX: G47.61 Periodic limb movement disorder (principal); I48.91 Unspecified atrial fibrillation; Z79.899 Other long term (current) drug therapy
CPT/HCPCS: 36415; 82728; 84443; 85025; 86431